=== PATIENT | male | born 1960 | race Caucasian/White ===

== ENCOUNTER → 2017-08-22 | Outpatient (CLI) | payer OTHER ==
[~2017-08-22] MED LIST: FERR-20 PO; FURO40TA4 PO; METO25TA5 PO; PANT40TA2 PO; SPIR50TA2 PO
[2017-08-22 09:09] LABS: Albumin 3.9 g/dL (3.4-5.0); BUN/Creatinine Ratio 15.2; Bilirubin, Total 0.5 mg/dL (0.2-1.0); Calcium 8.7 mg/dL (8.5-10.1); Potassium 3.9 mmol/L (3.5-5.1); Total Protein 7.6 g/dL (6.4-8.2)
== END | disposition home or self-care (01) ==
LOC: LAB 07:26
PROVIDERS: ATTEND Internal Medicine
DX: R73.01 Impaired fasting glucose (principal); R53.83 Other fatigue; I10 Essential (primary) hypertension
CPT/HCPCS: 36415; 80053; 83036; 84443

== ENCOUNTER → 2018-09-16 | Outpatient (CLI) | payer OTHER ==
[2018-09-16 16:30] LABS: Basophils # (auto) 0 uL; Basophils % (auto) 0.8 % (0.0-2.0); Eosinophils # (auto) 0.1 uL; Eosinophils % (auto) 0.9 % (0.0-7.0); Hematocrit 46.9 % (41.0-53.0); Hemoglobin 15.9 g/dL (13.5-17.5); Lymphocytes # (auto) 0.8 uL; Lymphocytes % (auto) 12.9 % (10.0-50.0); Mean Corpuscular Hemoglobin 31.1 pg (28.0-32.0); Mean Corpuscular Volume 91.4 fL (80.0-100.0); Monocytes # (auto) 0.6 uL; Monocytes % (auto) 9.9 % (0.0-12.0); Neutrophils # (auto) 4.7 uL; Neutrophils % (auto) 75.5 % (37.0-80.0); Platelet Count (auto) 135 10^3/uL (140-450); Red Blood Cells 5.13 10^6/uL (4.5-5.90); White Blood Cell 6.3 10^3/uL (4.4-10.8)
[2018-09-16 16:42] LABS: Albumin 4.1 g/dL (3.4-5.0); BUN/Creatinine Ratio 15.7; Calcium 9.3 mg/dL (8.5-10.1); Potassium 3.7 mmol/L (3.5-5.1)
[2018-09-16 16:46] LABS: Bilirubin, Total 0.7 mg/dL (0.2-1.0); Total Protein 7.4 g/dL (6.4-8.2)
== END | disposition home or self-care (01) ==
LOC: LAB 16:01
PROVIDERS: ATTEND Internal Medicine
DX: Z12.11 Encounter for screening for malignant neoplasm of colon (principal); Z12.5 Encounter for screening for malignant neoplasm of prostate; I10 Essential (primary) hypertension
CPT/HCPCS: 36415; 80053; 80061; 82306; 84153; 84443; 85025

== ENCOUNTER 2020-06-29 17:41 | Inpatient (IN) | payer BC, OTHER ==
[~2020-06-29] VITALS: Ht 185.4 cm; Wt 131.5 kg
[2020-06-29 18:53] LABS: Basophils # (auto) 0.1 10 ^3/uL (0-0.2); Basophils % (auto) 0.7 % (0.0-2.0); Eosinophils # (auto) 0.1 10 ^3/uL (0-0.8); Hematocrit 51.7 % (41.0-53.0); Hemoglobin 17.8 g/dL (13.5-17.5); Lymphocytes # (auto) 0.9 10 ^3/uL (0.4-5.4); Lymphocytes % (auto) 11.9 % (10.0-50.0); Mean Corpuscular Hemoglobin 31.3 pg (28.0-32.0); Mean Corpuscular Hgb Conc. 34.4 g/dL (32.0-36.0); Mean Corpuscular Volume 90.9 fL (80.0-100.0); Monocytes # (auto) 0.8 10 ^3/uL (0-1.3); Monocytes % (auto) 10.2 % (0.0-12.0); Neutrophils # (auto) 5.8 10 ^3/uL (1.6-8.6); Neutrophils % (auto) 76.2 % (37.0-80.0); Nucleated Red Blood Cells % 0.3 %; Platelet Count (auto) 209 10^3/uL (140-450); Red Blood Cells 5.68 10^6/uL (4.5-5.90); Red Cell Distribution Width 14.2 % (11.8-14.3); White Blood Cell 7.6 10^3/uL (4.4-10.8)
[2020-06-29 19:09] LABS: Albumin 3.7 g/dL (3.4-5.0); Anion Gap 10 (5-15); Blood Urea Nitrogen 11 mg/dL (7-18); Calcium 8.8 mg/dL (8.5-10.1); Carbon Dioxide 21 mmol/L (21-32); Chloride 107 mmol/L (98-107); Glucose 119 mg/dL (74-106); Potassium 3.9 mmol/L (3.5-5.1); Sodium 138 mmol/L (136-145)
[2020-06-29 19:14] LABS: Alanine Aminotransferase 26 U/L (16-61); Alkaline Phosphatase 74 U/L (45-117); Aspartate Aminotransferase 27 U/L (15-37); BUN/Creatinine Ratio 12.2; GFR African American 111 mL/min; GFR Non-African American 92 mL/min; Total Protein 7.6 g/dL (6.4-8.2)
[2020-06-29] MEDS ORDERED: SODIUM CHLORIDE 0.9% 2,000 ML IV ONE (19:30)
[2020-06-29] MEDS ORDERED: ONDANSETRON HCL 4 MG/2 ML VIAL IV ONE (19:30)
[2020-06-29] MEDS ORDERED: FAMOTIDINE (10MG/ML) 2ML VL IV ONE (19:30)
[2020-06-29] MEDS ORDERED: ASPirin 325 MG TAB PO ONE (21:30)
[2020-06-29] MEDS ORDERED: METOPROLOL TARTRATE 25 MG TAB PO ONE (23:00)
[2020-06-29] MEDS ORDERED: MORPHINE SULF INJ 2 MG/ML SYRINGE 1ML IV PRN (23:00)
[2020-06-29] MEDS ORDERED: ONDANSETRON HCL 4 MG/2 ML VIAL IV PRN (23:00)
[2020-06-29] MEDS ORDERED: NITROGLYCERIN 0.4 MG SL TAB SL PRN (23:00)
[2020-06-29] MEDS ORDERED: TEMAZEPAM 15 MG CAP PO PRN (23:00)
[2020-06-30 01:30] VITALS: BP 125/80
[2020-06-30] MEDS: ACETAMINOPHEN 325 MG TAB PO PRN ×2 (02:30→10:00)
[2020-06-30 05:12] VITALS: BP 133/77
[2020-06-30 06:05] LABS: Basophils # (auto) 0.1 10 ^3/uL (0-0.2); Basophils % (auto) 0.8 % (0.0-2.0); Eosinophils # (auto) 0.1 10 ^3/uL (0-0.8); Eosinophils % (auto) 1.4 % (0.0-7.0); Hematocrit 45.3 % (41.0-53.0); Hemoglobin 15.9 g/dL (13.5-17.5); Lymphocytes # (auto) 0.9 10 ^3/uL (0.4-5.4); Lymphocytes % (auto) 13.3 % (10.0-50.0); Mean Corpuscular Hemoglobin 31.8 pg (28.0-32.0); Mean Corpuscular Hgb Conc. 35.1 g/dL (32.0-36.0); Mean Corpuscular Volume 90.4 fL (80.0-100.0); Monocytes # (auto) 0.7 10 ^3/uL (0-1.3); Monocytes % (auto) 10.5 % (0.0-12.0); Neutrophils # (auto) 4.8 10 ^3/uL (1.6-8.6); Nucleated Red Blood Cells % 0.2 %; Platelet Count (auto) 157 10^3/uL (140-450); Red Blood Cells 5.01 10^6/uL (4.5-5.90); Red Cell Distribution Width 14.3 % (11.8-14.3); White Blood Cell 6.4 10^3/uL (4.4-10.8)
[2020-06-30 06:21] LABS: Albumin 3.5 g/dL (3.4-5.0); Calcium 8.1 mg/dL (8.5-10.1); Potassium 3.7 mmol/L (3.5-5.1)
[2020-06-30 06:23] LABS: BUN/Creatinine Ratio 16.7
[2020-06-30 06:37] LABS: Bilirubin, Total 0.9 mg/dL (0.2-1.0); Total Protein 6.7 g/dL (6.4-8.2)
[2020-06-30 08:37] VITALS: BP 108/60
[2020-06-30] MEDS: METOPROLOL TARTRATE 25 MG TAB PO SCH ×2 (09:36→21:45)
[2020-06-30] MEDS: FAMOTIDINE 20 MG TAB PO SCH ×2 (09:37→21:45)
[2020-06-30] MEDS ORDERED: ENOXAPARIN SOD 40 MG/0.4 ML SYRINGE SC SCH (10:00)
[2020-06-30 13:00] VITALS: BP 128/89
[2020-06-30 16:34] VITALS: BP 132/70
[2020-06-30 20:00] VITALS: BP 133/93
[2020-06-30] MEDS ORDERED: RIVAROXABAN 20 MG TAB PO SCH (22:00)
[2020-07-01 05:00] VITALS: BP 114/60
[2020-07-01 09:00] VITALS: BP 144/96
[2020-07-01] MEDS ORDERED: DRONEDARONE HCL 400 MG PO SCH (10:00)
[2020-07-01] MEDS: METOPROLOL TARTRATE 25 MG TAB PO SCH (10:15)
[2020-07-01] MEDS: FAMOTIDINE 20 MG TAB PO SCH (10:15)
[2020-07-01 13:00] VITALS: BP 110/66
[2020-07-01 14:38] VITALS: BP 110/66
== END 2020-07-01 16:10 | disposition home or self-care (01) | DRG 310 ==
LOC: ER 17:41 → TELE 22:56 → TELE-CENTR 23:33
PROVIDERS: ADMIT Nurse Practitioner; ATTEND Internal Medicine
DX: I48.20 Chronic atrial fibrillation, unspecified (principal); E66.01 Morbid (severe) obesity due to excess calories; I11.0 Hypertensive heart disease with heart failure; I50.9 Heart failure, unspecified; Z86.73 Personal history of transient ischemic attack (TIA), and cerebral infarction without residual deficits; Z68.38 Body mass index [BMI] 38.0-38.9, adult; Z90.49 Acquired absence of other specified parts of digestive tract; K46.9 Unspecified abdominal hernia without obstruction or gangrene; Z20.822 Contact with and (suspected) exposure to COVID-19
CPT/HCPCS: 36415; 71045; 80053; 83605; 83735; 83880; 84443; 84484; 85025; 87045; 87426; 87427; 87493; 93005; 93306; 96361; 96374; 96375; G0378; J2405; J3490

== ENCOUNTER → 2023-08-09 | Outpatient (CLI) | payer OTHER ==
[~2023-08-09] MED LIST changes: -FERR-20 PO; +FERR325T24 PO
[2023-08-09 11:14] LABS: Urine Bacteria None Seen /hpf (None Seen)
[2023-08-09 11:35] LABS: Eosinophils # (auto) 0.1 10 ^3/uL (0-0.8); Lymphocytes # (auto) 0.8 10 ^3/uL (0.4-5.4); Monocytes # (auto) 0.6 10 ^3/uL (0-1.3); Nucleated Red Blood Cells % 0.2 %; Red Cell Distribution Width 16.9 % (11.8-14.3)
[2023-08-09 11:37] LABS: Basophils # (auto) 0 10 ^3/uL (0-0.2); Basophils % (auto) 0.3 % (0.0-2.0); Eosinophils % (auto) 2.4 % (0.0-7.0); Hematocrit 35.5 % (41.0-53.0); Lymphocytes % (auto) 15.3 % (10.0-50.0); Mean Corpuscular Hemoglobin 22.6 pg (28.0-32.0); Mean Corpuscular Volume 72.7 fL (80.0-100.0); Monocytes % (auto) 11.1 % (0.0-12.0); Neutrophils # (auto) 3.7 10 ^3/uL (1.6-8.6); Neutrophils % (auto) 70.9 % (37.0-80.0); Red Blood Cells 4.88 10^6/uL (4.5-5.90); White Blood Cell 5.3 10^3/uL (4.4-10.8)
[2023-08-09 11:53] LABS: Urine Blood Negative /uL (Negative); Urine Clarity Clear (Clear); Urine Color Light-Yellow (Yellow); Urine Protein, UAD Negative (Negative); Urine Specific Gravity 1.039 (1.001-1.035); Urine Urobilinogen Normal (Negative); Urine WBC <1 /hpf (0 - 3)
[2023-08-09 12:16] LABS: Prostate Specific Antigen 2.54 ng/mL (0.0-4.0)
[2023-08-09 12:19] LABS: Alanine Aminotransferase 20 U/L (7-40); Albumin 4.3 g/dL (3.2-4.8); Alkaline Phosphatase 74 U/L (46-116); Anion Gap 5 (5-15); Aspartate Aminotransferase 18 U/L (13-40); Blood Urea Nitrogen 9 mg/dL (9-23); Calcium 8.9 mg/dL (8.5-10.1); Carbon Dioxide 26 mmol/L (20-30); Chloride 104 mmol/L (98-107); Cholesterol 187 mg/dL (< 200); Glucose 295 mg/dL (74-106); HDL Cholesterol 54 mg/dL (40-59); LDL Cholesterol 114 mg/dL (< 100); Sodium 135 mmol/L (136-145); Triglycerides 105 mg/dL (< 150)
[2023-08-09 12:20] LABS: Bilirubin, Total 0.7 mg/dL (0.2-1.0); Free T4 (Free Thyroxine) 0.88 ng/dL (0.89-1.76); Total Protein 6.7 g/dL (5.7-8.2)
== END | disposition home or self-care (01) ==
LOC: LAB 11:02
PROVIDERS: ATTEND Internal Medicine
DX: Z12.5 Encounter for screening for malignant neoplasm of prostate (principal); Z00.00 Encounter for general adult medical examination without abnormal findings; I10 Essential (primary) hypertension; D50.9 Iron deficiency anemia, unspecified; R33.9 Retention of urine, unspecified; E78.2 Mixed hyperlipidemia; Z79.899 Other long term (current) drug therapy
CPT/HCPCS: 36415; 80053; 80061; 81001; 83036; 84153; 84439; 84443; 85025

== ENCOUNTER 2023-09-02 17:16 | Inpatient (IN) | payer OTHER ==
[~2023-09-02] VITALS: Ht 185.4 cm; Wt 114.9 kg
[2023-09-02 18:18] LABS: Basophils # (auto) 0.1 10 ^3/uL (0-0.2); Eosinophils # (auto) 0.1 10 ^3/uL (0-0.8); Hemoglobin 12.7 g/dL (13.5-17.5); Monocytes # (auto) 0.6 10 ^3/uL (0-1.3); Nucleated Red Blood Cells % 0.1 %; Red Cell Distribution Width 16.8 % (11.8-14.3)
[2023-09-02 18:21] LABS: Eosinophils % (auto) 1.3 % (0.0-7.0); Hematocrit 39.7 % (41.0-53.0); Lymphocytes % (auto) 16.3 % (10.0-50.0); Mean Corpuscular Hemoglobin 22.6 pg (28.0-32.0); Mean Corpuscular Volume 70.6 fL (80.0-100.0); Monocytes % (auto) 10.4 % (0.0-12.0); Neutrophils # (auto) 4.3 10 ^3/uL (1.6-8.6); Red Blood Cells 5.63 10^6/uL (4.5-5.90); White Blood Cell 6.1 10^3/uL (4.4-10.8)
[2023-09-02 18:29] LABS: INR 0.97 (0.9-1.15); Partial Thromboplastin Time 24.4 SEC (24.5-34.5); Prothrombin Time 10.3 sec (9.3-11.8)
[2023-09-02 18:35] LABS: Alanine Aminotransferase 20 U/L (7-40); Albumin 4.7 g/dL (3.2-4.8); Alkaline Phosphatase 80 U/L (46-116); Anion Gap 8 (5-15); Aspartate Aminotransferase 10 U/L (13-40); BUN/Creatinine Ratio 16.1 (10.0-20.0); Bilirubin, Total 0.5 mg/dL (0.2-1.0); Blood Urea Nitrogen 15 mg/dL (9-23); Calcium 9.8 mg/dL (8.5-10.1); Carbon Dioxide 22 mmol/L (20-30); Chloride 104 mmol/L (98-107); Glucose 336 mg/dL (74-106); Potassium 4.4 mmol/L (3.5-5.1); Sodium 134 mmol/L (136-145); Total Protein 7.1 g/dL (5.7-8.2)
[2023-09-02] MEDS ORDERED: ACETAMINOPHEN 325 MG TAB PO PRN (21:00)
[2023-09-02] MEDS ORDERED: NITROGLYCERIN 0.4 MG SL TAB SL PRN (21:00)
[2023-09-02] MEDS ORDERED: MORPHINE SULFATE INJ 2 MG/ml SYRG IV PRN (21:00)
[2023-09-02] MEDS ORDERED: TEMAZEPAM 15 MG CAP PO PRN (21:00)
[2023-09-02] MEDS ORDERED: ONDANSETRON HCL 4 MG/2 ML VIAL IV PRN (21:00)
[2023-09-02] MEDS ORDERED: DEXTROSE (50%) 50ML SYRG IV PRN (21:00)
[2023-09-02 21:18] LABS: Urine Bacteria None Seen /hpf (None Seen)
[2023-09-02 21:28] LABS: Urine Blood Negative /uL (Negative); Urine Clarity Clear (Clear); Urine Color Yellow (Yellow); Urine Mucus FEW (None Seen); Urine Protein, UAD 1+ (Negative); Urine Specific Gravity 1.049 (1.001-1.035); Urine Urobilinogen Normal (Negative); Urine WBC 5 /hpf (0 - 3)
[2023-09-03] MEDS: HYDROcodone-ACET 7.5/325MG TAB PO PRN (00:43)
[2023-09-03] MEDS ORDERED: DEXTROSE (50%) 50ML SYRG IV PRN ×2 (01:00→13:00)
[2023-09-03 02:19] VITALS: PULSE 82; RESP 16; O2SAT 96
[2023-09-03] MEDS: ACCU-CHEK COMFORT CURVE STRIP VI SCH ×3 (06:13→16:16)
[2023-09-03] MEDS: InsuLIN REG 1unit/0.01ml Soln (100units/ml) SC SCH ×3 (06:20→16:28)
[2023-09-03 06:39] LABS: Basophils # (auto) 0.1 10 ^3/uL (0-0.2); Eosinophils # (auto) 0.1 10 ^3/uL (0-0.8); Hemoglobin 11.5 g/dL (13.5-17.5); Lymphocytes # (auto) 0.9 10 ^3/uL (0.4-5.4); Monocytes # (auto) 0.7 10 ^3/uL (0-1.3); Monocytes % (auto) 12.9 % (0.0-12.0)
[2023-09-03 06:42] LABS: Basophils % (auto) 1.1 % (0.0-2.0); Eosinophils % (auto) 1.5 % (0.0-7.0); Hematocrit 35.8 % (41.0-53.0); Lymphocytes % (auto) 18.3 % (10.0-50.0); Mean Corpuscular Hemoglobin 22.9 pg (28.0-32.0); Mean Corpuscular Hgb Conc. 32.2 g/dL (32.0-36.0); Mean Corpuscular Volume 71.3 fL (80.0-100.0); Neutrophils # (auto) 3.4 10 ^3/uL (1.6-8.6); Neutrophils % (auto) 66.2 % (37.0-80.0); Red Blood Cells 5.03 10^6/uL (4.5-5.90); Red Cell Distribution Width 16.3 % (11.8-14.3); White Blood Cell 5.1 10^3/uL (4.4-10.8)
[2023-09-03 06:47] LABS: Anion Gap 9 (5-15); Carbon Dioxide 25 mmol/L (20-30); Chloride 105 mmol/L (98-107); Potassium 3.5 mmol/L (3.5-5.1); Sodium 139 mmol/L (136-145)
[2023-09-03 06:48] LABS: Calcium 9.3 mg/dL (8.7-10.4)
[2023-09-03 06:54] LABS: Blood Urea Nitrogen 13 mg/dL (9-23)
[2023-09-03 07:10] LABS: Glucose 215 mg/dL (74-106)
[2023-09-03 08:00] VITALS: PULSE 75; RESP 14; O2SAT 97
[2023-09-03 08:48] LABS: Magnesium 1.9 mg/dL (1.6-2.6)
[2023-09-03] MEDS ORDERED: ENOXAPARIN SOD 40 MG/0.4 ML SYRINGE SC SCH (10:00)
[2023-09-03] MEDS: FUROSEMIDE 40 MG TAB PO SCH (10:37)
[2023-09-03] MEDS: SPIRONOLACTONE 25 MG TAB PO SCH (10:38)
[2023-09-03] MEDS: METOPROLOL SUCCINATE XL 50 MG TAB PO SCH (10:39)
[2023-09-03] MEDS: ENOXAPARIN SOD 120 MG/0.8 ML SYRINGE SC SCH (10:40)
[2023-09-03 19:40] VITALS: PULSE 89; RESP 16; O2SAT 97
[2023-09-04] VITALS (8 sets, daily range): BP systolic 115–134; BP diastolic 69–78; PULSE 68–89; RESP 14–22; TEMP 97.8–98.2; O2SAT 95–99
[2023-09-04] MEDS ORDERED: TRAM50TA2 PO (00:49)
[2023-09-04] MEDS ORDERED: SPIR25TA PO (11:31)
[2023-09-04] MEDS ORDERED: METO25TA93 PO (11:31)
[2023-09-04] MEDS ORDERED: FURO1TAB31 PO (11:31)
[2023-09-04] MEDS: InsuLIN REG 1unit/0.01ml Soln (100units/ml) SC SCH ×2 (17:00→18:30)
[2023-09-04] MEDS: ACCU-CHEK COMFORT CURVE STRIP VI SCH (18:14)
[2023-09-05 01:00] VITALS: BP 128/81; PULSE 76; RESP 18; TEMP 98.5; O2SAT 98
[2023-09-05 05:00] VITALS: BP 135/87; PULSE 73; RESP 20; TEMP 97.9; O2SAT 99
[2023-09-05 09:00] VITALS: BP 110/80; PULSE 78; RESP 16; TEMP 97.8; O2SAT 99
[2023-09-05 12:48] VITALS: BP 118/75; PULSE 74; RESP 18; TEMP 98.1; O2SAT 97
== END 2023-09-05 17:00 | disposition home or self-care (01) | DRG 305 ==
LOC: ER 17:16 → TELE 20:59 → TELE-WESTW 09-03 22:03 → WEST WING 09-04 17:14
PROVIDERS: ADMIT Nurse Practitioner; ATTEND Internal Medicine
DX: I16.0 Hypertensive urgency (principal); I48.0 Paroxysmal atrial fibrillation; E11.65 Type 2 diabetes mellitus with hyperglycemia; E66.9 Obesity, unspecified; I10 Essential (primary) hypertension; E78.00 Pure hypercholesterolemia, unspecified; Z68.33 Body mass index [BMI] 33.0-33.9, adult; Z86.718 Personal history of other venous thrombosis and embolism; Z79.84 Long term (current) use of oral hypoglycemic drugs; Z79.4 Long term (current) use of insulin; Z90.49 Acquired absence of other specified parts of digestive tract
CPT/HCPCS: 36415; 71045; 80048; 80053; 80061; 81001; 82962; 83735; 83880; 84443; 84484; 85025; 85379; 85610; 85730; 93005; 93306; 96372; G0378; J1815

== ENCOUNTER → 2023-09-09 | Outpatient (CLI) | payer OTHER ==
[~2023-09-09] MED LIST changes: +FURO1TAB31 PO; -FURO40TA4 PO; +METO25TA93 PO; +SPIR25TA PO; -SPIR50TA2 PO; +TRAM50TA2 PO
[2023-09-09 12:07] LABS: Basophils # (auto) 0.1 10 ^3/uL (0-0.2); Basophils % (auto) 0.8 % (0.0-2.0); Hemoglobin 12.3 g/dL (13.5-17.5); Lymphocytes # (auto) 0.6 10 ^3/uL (0.4-5.4); Monocytes # (auto) 0.6 10 ^3/uL (0-1.3)
[2023-09-09 12:09] LABS: Eosinophils # (auto) 0 10 ^3/uL (0-0.8); Eosinophils % (auto) 0.6 % (0.0-7.0); Hematocrit 39.5 % (41.0-53.0); Lymphocytes % (auto) 7.9 % (10.0-50.0); Mean Corpuscular Hemoglobin 22.2 pg (28.0-32.0); Mean Corpuscular Hgb Conc. 31.2 g/dL (32.0-36.0); Mean Corpuscular Volume 71.3 fL (80.0-100.0); Monocytes % (auto) 8.6 % (0.0-12.0); Neutrophils % (auto) 82.1 % (37.0-80.0); Red Blood Cells 5.54 10^6/uL (4.5-5.90); Red Cell Distribution Width 16.9 % (11.8-14.3); White Blood Cell 7.3 10^3/uL (4.4-10.8)
[2023-09-09 12:39] LABS: Ferritin 6.3 ng/mL (22-322)
[2023-09-09 12:40] LABS: Free T3 2.94 pg/mL (2.3-4.2)
[2023-09-09 12:43] LABS: Anion Gap 5 (5-15); Calcium 9.4 mg/dL (8.5-10.1); Carbon Dioxide 25 mmol/L (20-30); Chloride 105 mmol/L (98-107); Potassium 3.5 mmol/L (3.5-5.1); Sodium 135 mmol/L (136-145)
[2023-09-09 12:48] LABS: Glucose 269 mg/dL (74-106)
[2023-09-09 12:49] LABS: BUN/Creatinine Ratio 14.9 (10.0-20.0); Blood Urea Nitrogen 13 mg/dL (9-23); LDL Cholesterol 102 mg/dL (< 100); Triglycerides 122 mg/dL (< 150)
[2023-09-09 12:50] LABS: Cholesterol 154 mg/dL (< 200); HDL Cholesterol 38 mg/dL (40-59)
[2023-09-09 13:37] LABS: Free T4 (Free Thyroxine) 1.02 ng/dL (0.89-1.76)
== END | disposition home or self-care (01) ==
LOC: LAB 11:08
PROVIDERS: ATTEND Internal Medicine
DX: I11.0 Hypertensive heart disease with heart failure (principal); I50.32 Chronic diastolic (congestive) heart failure; E78.2 Mixed hyperlipidemia; D50.9 Iron deficiency anemia, unspecified
CPT/HCPCS: 36415; 80048; 80061; 82728; 83036; 83540; 84439; 84443; 84481; 85025

== ENCOUNTER → 2023-09-27 | Outpatient (CLI) | payer OTHER ==
[2023-09-27 10:46] LABS: Alanine Aminotransferase 14 U/L (7-40); Albumin 4.7 g/dL (3.2-4.8); Alkaline Phosphatase 67 U/L (46-116); Anion Gap 9 (5-15); Aspartate Aminotransferase 12 U/L (13-40); BUN/Creatinine Ratio 15.3 (10.0-20.0); Bilirubin, Total 0.9 mg/dL (0.2-1.0); Blood Urea Nitrogen 13 mg/dL (9-23); Calcium 9.8 mg/dL (8.5-10.1); Carbon Dioxide 24 mmol/L (20-30); Chloride 104 mmol/L (98-107); Cholesterol 172 mg/dL (< 200); Glucose 289 mg/dL (74-106); HDL Cholesterol 44 mg/dL (40-59); LDL Cholesterol 112 mg/dL (< 100); Potassium 3.5 mmol/L (3.5-5.1); Sodium 137 mmol/L (136-145); Total Protein 7.1 g/dL (5.7-8.2); Triglycerides 135 mg/dL (< 150)
[2023-09-27 11:29] LABS: Prostate Specific Antigen 2.43 ng/mL (0.0-4.0)
[2023-09-30 14:20] LABS: Hepatitis A Ab IgM Negative
[2023-09-30 14:21] LABS: Hepatitis B Core IgM Negative; Hepatitis C Antibody Negative (Negative)
[2023-10-01 03:45] LABS: Hepatitis B Surface Antigen Negative (Negative)
== END | disposition home or self-care (01) ==
LOC: LAB 09:06
PROVIDERS: ATTEND Internal Medicine
DX: Z11.59 Encounter for screening for other viral diseases (principal); Z12.5 Encounter for screening for malignant neoplasm of prostate; I10 Essential (primary) hypertension; E11.69 Type 2 diabetes mellitus with other specified complication; E78.2 Mixed hyperlipidemia; E55.9 Vitamin D deficiency, unspecified; D50.9 Iron deficiency anemia, unspecified; I48.0 Paroxysmal atrial fibrillation; E66.8 Other obesity
CPT/HCPCS: 36415; 80053; 80061; 80074; 82306; 82607; 84153

== ENCOUNTER → 2023-10-18 | Outpatient (CLI) | payer OTHER ==
[2023-10-18 12:41] LABS: Lymphocytes # (auto) 0.9 10 ^3/uL (0.4-5.4); Monocytes # (auto) 0.5 10 ^3/uL (0-1.3); White Blood Cell 5.6 10^3/uL (4.4-10.8)
[2023-10-18 12:43] LABS: Basophils # (auto) 0.1 10 ^3/uL (0-0.2); Basophils % (auto) 0.9 % (0.0-2.0); Eosinophils # (auto) 0 10 ^3/uL (0-0.8); Eosinophils % (auto) 0.8 % (0.0-7.0); Hematocrit 43.1 % (41.0-53.0); Hemoglobin 14.1 g/dL (13.5-17.5); Lymphocytes % (auto) 15.5 % (10.0-50.0); Mean Corpuscular Hemoglobin 26.2 pg (28.0-32.0); Mean Corpuscular Hgb Conc. 32.6 g/dL (32.0-36.0); Mean Corpuscular Volume 80.3 fL (80.0-100.0); Neutrophils # (auto) 4.2 10 ^3/uL (1.6-8.6); Neutrophils % (auto) 73.8 % (37.0-80.0); Red Blood Cells 5.37 10^6/uL (4.5-5.90)
[2023-10-18 12:45] LABS: Red Cell Distribution Width 25.3 % (11.8-14.3)
[2023-10-18 13:00] LABS: Platelet Estimate Adequate
[2023-10-18 13:01] LABS: Anisocytosis Moderate
[2023-10-18 13:04] LABS: Tear Drop Cells FEW
[2023-10-18 13:37] LABS: % Iron Saturation 34.5 % (20-55)
== END | disposition home or self-care (01) ==
LOC: LAB 12:19
PROVIDERS: ATTEND Internal Medicine
DX: D50.9 Iron deficiency anemia, unspecified (principal)
CPT/HCPCS: 36415; 82728; 83540; 83550; 85025

== ENCOUNTER → 2023-11-14 | Outpatient (CLI) | payer OTHER ==
[~2023-11-14] VITALS: Ht 180.3 cm; Wt 114.8 kg
[2023-11-14] MEDS: ADENOSINE 96 MG in GIVE UN-DILUTED 0 ML IV ONE (09:51)
== END | disposition home or self-care (01) ==
LOC: XYW 07:34
PROVIDERS: ATTEND Student in an Organized Health Care Education/Training Program
DX: I49.3 Ventricular premature depolarization (principal); R07.9 Chest pain, unspecified; I10 Essential (primary) hypertension; E11.9 Type 2 diabetes mellitus without complications; I48.91 Unspecified atrial fibrillation; E78.5 Hyperlipidemia, unspecified
CPT/HCPCS: 78452; 93017; A9500; J0153

== ENCOUNTER → 2024-05-21 | Outpatient (CLI) | payer MEDICAID, OTHER ==
[2024-05-21 12:46] LABS: Basophils # (auto) 0.1 10 ^3/uL (0-0.2); Eosinophils # (auto) 0.1 10 ^3/uL (0-0.8); Eosinophils % (auto) 0.8 % (0.0-7.0); Hematocrit 31.9 % (41.0-53.0); Hemoglobin 10.2 g/dL (13.5-17.5); Lymphocytes # (auto) 0.9 10 ^3/uL (0.4-5.4); Lymphocytes % (auto) 12.9 % (10.0-50.0); Mean Corpuscular Hemoglobin 22.6 pg (28.0-32.0); Mean Corpuscular Hgb Conc. 32.1 g/dL (32.0-36.0); Mean Corpuscular Volume 70.5 fL (80.0-100.0); Monocytes # (auto) 0.6 10 ^3/uL (0-1.3); Monocytes % (auto) 8.8 % (0.0-12.0); Neutrophils # (auto) 5.4 10 ^3/uL (1.6-8.6); Neutrophils % (auto) 76.5 % (37.0-80.0); Platelet Count (auto) 263 10^3/uL (140-450); Red Blood Cells 4.52 10^6/uL (4.5-5.90); Red Cell Distribution Width 16.4 % (11.8-14.3); White Blood Cell 7.1 10^3/uL (4.4-10.8)
[2024-05-21 13:03] LABS: Alanine Aminotransferase 13 U/L (7-40); Albumin 4.5 g/dL (3.2-4.8); Alkaline Phosphatase 74 U/L (46-116); Anion Gap 8 (5-15); BUN/Creatinine Ratio 13.2 (10.0-20.0); Blood Urea Nitrogen 10 mg/dL (9-23); Calcium 9.2 mg/dL (8.7-10.4); Carbon Dioxide 26 mmol/L (20-31); Chloride 104 mmol/L (98-107); Cholesterol 172 mg/dL (< 200); HDL Cholesterol 43 mg/dL (40-59); Potassium 3.6 mmol/L (3.5-5.1); Sodium 138 mmol/L (136-145); Triglycerides 128 mg/dL (< 150)
[2024-05-21 13:04] LABS: Aspartate Aminotransferase 10 U/L (13-40); Bilirubin, Total 0.6 mg/dL (0.2-1.0); Glucose 167 mg/dL (74-106); LDL Cholesterol 107 mg/dL (< 100); Total Protein 6.8 g/dL (5.7-8.2)
== END | disposition home or self-care (01) ==
LOC: LAB 12:08
PROVIDERS: ATTEND Student in an Organized Health Care Education/Training Program
DX: I11.0 Hypertensive heart disease with heart failure (principal); I50.30 Unspecified diastolic (congestive) heart failure; E11.9 Type 2 diabetes mellitus without complications; R06.02 Shortness of breath
CPT/HCPCS: 36415; 80053; 80061; 83036; 83880; 84443; 85025

== ENCOUNTER 2024-07-26 16:18 | Inpatient (IN) | payer MEDICAID ==
[~2024-07-26] VITALS: Ht 185.4 cm; Wt 125.7 kg
--- NOTE | 2024-07-26 17:16 | ED.PDOC ---
Burn HPI HPI Comments 63 y.o male with PMHx of history of right arm DVT, hypertension, dyslipidemia, type 2 diabetes mellitus, pancreatic stones, chronic back pain, presents to the ED for an evaluation of a burn that developed 2 days ago. Patient reports possibly oil or grease from [place]rera fell onto his abdomen while cooking, states he has no sensation to his abdomen region where he had an abdominal wall skin graft in 2013. Patient reports blister formed yesterday but since switching bandages, blister burst and now has clear drainage. There is some redness around the previous blister area, but patient's spouse states this has been stable since she has been aware of the burn. Patient denies any fever or chills. Patient states he has a history of previous staph skin infection, none recently and is not on any antibiotics at this time. Patient states he received tetanus vaccine within the last 3 yrs. Chief Complaint: Tran Time Seen by MD: 17:02 Primary Care Provider: AMY Hutton notes: Nurses Notes, Medications, Allergies Allergies: Coded Allergies: NO KNOWN ALLERGIES (Unverified , 11/14/23) Home Meds Active Scripts Mupirocin (Pseudomonas Fluores (Mupirocin) 2 % Oin, 2 % TOP TID, #30 GRAMS Apply to burn area tid until healed. Prov:MELISSA CHRISTOPHER MD 07/26/24 Doxycycline (Monohydrate) (Doxycycline) 100 Mg Tab, 100 MG PO BID for 7 Days, #14 TAB Prov:MELISSA CHRISTOPHER MD 07/26/24 Furosemide (Lasix) 40 Mg Tab, 40 MG PO DAILY, #90 TAB Prov:GEENA MAO MD 09/04/23 Spironolactone (Aldactone) 25 Mg Tab, 50 MG PO DAILY, #90 TAB Prov:GEENA MAO MD 09/04/23 Metoprolol Succinate (Metoprolol Succinate Er) 25 Mg Tab, 1 TAB PO DAILY, #90 TAB 1 Refill Prov:GEENA MAO MD 09/04/23 Reported Medications Tramadol Hcl (Tramadol Hcl) 50 Mg Tab, 50 MG PO, TAB 09/04/23 Metoprolol Tartrate (Metoprolol Tartrate) 25 Mg Tab, 12.5 MG PO BID, TAB 01/30/15 Ferrous Sulfate (Ferrous Sulfate) 325 Mg Tab, 325 MG PO DAILY for 30 Days, MG 01/30/15 Pantoprazole Sodium Sesquihydr (Protonix) 40 Mg Tab, 40 MG PO DAILY, #30 TAB 01/30/15 Information Source: Patient, Relative (daughter ) Mode of Arrival: Ambulatory Severity: Moderate Timing: Days (2) Duration: Since onset Type of Burn: Other (Unknown ) Location: Abdomen Burn Quality: Painless, Red, Blisters Associated Sign and Symptoms: None Past Medical History PAST MEDICAL HISTORY: DM, High Lipids, HTN Past Medical History (Other): chronic back pain and DVT Surgical History: Appendectomy, Cholecystectomy, Hernia Repair Family History Family History: Reviewed,noncontributory to illness Social History Smoker: Non-Smoker, Quit Greater Than 1 Year, Cigarettes Alcohol: Denies ETOH Use Drugs: Denies Drug Use Lives In: Home Constitutional: denies: chills, diaphoresis, fatigue, fever, malaise, sweats, weakness, others EENTM: denies: blurred vision, double vision, ear bleeding, ear discharge, ear drainage, ear pain, ear ringing, eye pain, eye redness, hearing loss, mouth pain, mouth swelling, nasal discharge, nose bleeding, nose congestion, nose pa in, photophobia, tearing, throat pain, throat swelling, voice changes, others Respiratory: denies: cough, hemoptysis, orthopnea, SOB at rest, shortness of breath, SOB with excertion, stridor, wheezing, others Cardiovascular: denies: chest pain, dizzy spells, diaphoresis, Dyspnea on exertion, edema, irregular heart beat, left arm pain, lightheadedness, palpitations, PND, syncope, others Gastrointestinal: denies: abdomen distended, abdominal pain, blood streaked bowels, constipated, diarrhea, dysphagia, difficulty swallowing, hematemesis, melena, nausea, poor appetite, poor fluid intake, rectal bleeding, rectal pain, vomiting, others Genitourinary: denies: burning, dysuria, flank pain, frequency, hematuria, incontinence, penile discharge, penile sore, pain, testicle pain, testicle swelling, urgency, others Neurological: denies: dizziness, fainting, headache, left sided numbness, left sided weakness, numbness, paresthesia, pre-existing deficit, right sided numbness, right sided weakness, seizure, speech problems, tingling, tremors, weakness, others Musculoskeletal: denies: back pain, gout, joint pain, joint swelling, muscle pain, muscle stiffness, neck pain, others Integumetry: reports: wounds (abdomen ); denies: bruises, change in color, change in hair/nails, dryness, laceration, lesions, lumps, rash, others Allergic/Immunocompromised: denies: Difficulty Healing, Frequent Infections, Hives, Itching, others Hematologic/Lymphatic: denies: anemia, blood clots, easy bleeding, easy bruising, swollen glands, others Endocrine: denies: excessive hunger, excessive sweating, excessive thirst, excessive urination, flushing, intolerance to cold, intolerance to heat, unexplained weight gain, unexplained weight loss, others Psychiatric: denies: anxiety, bipolar disorder, depression, hopeless, panic disorder, schizophrenia, sleepless, suicidal, others All Other Systems: Reviewed and Negative Physical Exam General Appearance: No Apparent Distress HEENT: Other (Pupils and face symmetric. Moist mucous membranes.) Neck: Full Range of Motion, Normal Inspection Respiratory: No Accessory Muscle Use, No Respiratory Distress Cardiovascular: No Edema, No JVD Breast Exam: Deferred Gastrointestinal: Non Tender, Soft Genitalia: Deferred Pelvic: Deferred Rectal: Deferred Extremities: Normal inspection, Normal range of motion, No pedal edema Neurologic: Alert (Oriented x4, appropriately conversant), Normal Affect, Normal Mood, Other (Ambulatory.) Cerebellar Function: NOT DONE Reflexes: NOT DONE Skin: Dry, Warm, Other (Right lower abdominal wall superficial partial thickness burn approximately 2.5 x 5 cm with minimal serous d/c. No fluctuance. Brisk cap refill. Approx 1.5 cm margin of surrounding erythema. No edema.) Lymphatic: NOT DONE Was a procedure done? Was a procedure done?: No Differentail Diagnosis (BRN) Differential Diagnosis: Acidosis, Burn-Partial Thickness X-Ray, Labs, Meds, VS Vital Signs Date Time Temp Pulse Resp B/P (MAP) Pulse Ox O2 Delivery O2 Flow Rate FiO2 07/26/24 20:26 97.7 69 16 117/76 (90) 97 97.7 07/26/24 18:12 97.9 65 17 120/62 (81) 98 97.9 07/26/24 18:12 65 17 98 Room Air* 0 21 07/26/24 16:35 98.5 71 18 127/52 (77) 98 98.5 Lab Test 07/26/24 19:31 07/26/24 18:46 Range/Units POC Glucose 103 70-106 mg/dl White Blood Count 8.3 4.4-10.8 10^3/uL Red Blood Count 5.19 4.5-5.90 10^6/uL Hemoglobin 13.7 13.5-17.5 g/dL Hematocrit 42.1 41.0-53.0 % Mean Corpuscular Volume 81.1 80.0-100.0 fL Mean Corpuscular Hemoglobin 26.5 L 28.0-32.0 pg Mean Corpuscular Hemoglobin Concent 32.6 32.0-36.0 g/dL Red Cell Distribution Width 24.2 H 11.8-14.3 % Platelet Count 189 140-450 10^3/uL Mean Platelet Volume 8.7 6.9-10.8 fL Neutrophils (%) (Auto) 80.6 H 37.0-80.0 % Lymphocytes (%) (Auto) 9.0 L 10.0-50.0 % Monocytes (%) (Auto) 9.0 0.0-12.0 % Eosinophils (%) (Auto) 0.9 0.0-7.0 % Basophils (%) (Auto) 0.5 0.0-2.0 % Neutrophils # (Auto) 6.7 1.6-8.6 10 ^3/uL Lymphocytes # (Auto) 0.7 0.4-5.4 10 ^3/uL Monocytes # (Auto) 0.8 0-1.3 10 ^3/uL Eosinophils # (Auto) 0.1 0-0.8 10 ^3/uL Basophils # (Auto) 0 0-0.2 10 ^3/uL Nucleated Red Blood Cells 0.0 % Sodium Level 140 136-145 mmol/L Potassium Level 3.7 3.5-5.1 mmol/L Chloride Level 104 98-107 mmol/L Carbon Dioxide Level 27 20-31 mmol/L Anion Gap 9 5-15 Blood Urea Nitrogen 14 9-23 mg/dL Creatinine 0.80 0.700-1.30 mg/dL Glomerular Filtration Rate Calc 99 >90 mL/min BUN/Creatinine Ratio 17.5 10.0-20.0 Serum Glucose 112 H 74-106 mg/dL Calcium Level 9.6 8.7-10.4 mg/dL Current Medications Medications (Trade) Dose Ordered Sig/Cristian Route Start Time Stop Time Status Last Admin Mupirocin (Bactroban 2% Ointment) 1 applic ONCE ONCE TOP 07/26/24 17:15 07/26/24 17:16 DC 07/26/24 18:28 Vancomycin HCl 200 ml @ 200 mls/hr ONCE ONCE IV 07/26/24 18:30 07/26/24 19:29 DC 07/26/24 18:48 X-Ray, Labs, Meds, VS Comment 63-year-old male with a history of DVT, hypertension, dyslipidemia, type 2 diabetes mellitus, pancreatic stones, chronic back pain presenting with a right lower abdominal wall burn that occurred yesterday. Patient states there was an initial blister, which has sloughed off revealing white tissue underneath. Vitals unremarkable Exam remarkable for right lower abdominal wall superficial partial thickness burn approximately 2.5 x 5 cm with minimal serous d/c. No fluctuance. Brisk cap refill. Approx 1.5 cm margin of surrounding erythema. No edema. Patient treated with the following in the ED: The burn area was cleansed with normal saline/Betadine solution. Mupirocin ointment and a nonadherent dressing were applied. Patient denied any pain. Vitals were unremarkable. He appears stable for discharge with close outpatient follow-up with his primary physician in 2 days for a wound check. I will prescribe oral and topical antibiotics to prevent infection, as the patient is diabetic has a history of staph skin infections. Rx doxycycline, mupirocin 1820: Plan was to discharge the patient on oral antibiotics, however prior to discharge, patient's asked me to re-evaluate, as she felt that the margin of erythema surrounding the burn site was enlarging. On re-evaluation, the margin of erythema had expanded from its initial approximate 1.5 cm to around 5 cm, and there was increased fluid drainage from the burn area. Plan will now be to admit the patient for IV antibiotics. Blood and wound cultures, IV cefepime and vancomycin were ordered. Time of 1ST Reevaluation: 17:11 Reevaluation 1ST: Unchanged Patient Education/Counseling: Diagnosis, Treatment, Prognosis Family Education/Counseling: Diagnosis, Treatment, Prognosis Departure 1 Departure Time of Disposition: 17:37 Impression: Primary Impression: Second degree burn of abdominal wall Qualified Codes: T21.22XA - Burn of second degree of abdominal wall, initial encounter Additional Impression: Wound infection Disposition: ADMITTED INPATIENT Admit to: Med Surg Condition: Guarded e-Prescriptions Mupirocin (Pseudomonas Fluores (Mupirocin) 2 % Oin 2 % TOP TID, #30 GRAMS Apply to burn area tid until healed. Prov: MELISSA CHRISTOPHER MD 07/26/24 Doxycycline (Monohydrate) (Doxycycline) 100 Mg Tab 100 MG PO BID for 7 Days, #14 TAB Prov: MELISSA CHRISTOPHER MD 07/26/24 Critical Care Note Critical Care Time?: No Stability Stability form required: No Heart Score Heart Score: Heart Score Response (Comments) Value History N/A 0 EKG N/A 0 Age N/A 0 Risk Factors N/A 0 Troponin N/A 0 Total 0 I personally scribed for MELISSA CHRISTOPHER MD ([facility] on 07/26/24 at 17:16. Electronically submitted by Bryanna Maciel ([facility]). MELISSA CHRISTOPHER MD July 26, 2024 17:16
[2024-07-26] MEDS ORDERED: MUPI2OIN2 TOP (17:18)
[2024-07-26] MEDS ORDERED: DOXY-346 PO (17:18)
[2024-07-26 18:12] VITALS: PULSE 65; RESP 17; O2SAT 98
[2024-07-26] MEDS: MUPIROCIN 2% OINT 15gm or 22gm TOP ONE (18:28)
[2024-07-26] MEDS: VANCOMYCIN 1GM/200ML PM 200 ML IV ONE (18:48)
[2024-07-26 18:56] LABS: Basophils # (auto) 0 10 ^3/uL (0-0.2); Eosinophils # (auto) 0.1 10 ^3/uL (0-0.8); Hemoglobin 13.7 g/dL (13.5-17.5); Lymphocytes # (auto) 0.7 10 ^3/uL (0.4-5.4); Mean Corpuscular Hgb Conc. 32.6 g/dL (32.0-36.0); Mean Corpuscular Volume 81.1 fL (80.0-100.0)
[2024-07-26 18:58] LABS: Basophils % (auto) 0.5 % (0.0-2.0); Eosinophils % (auto) 0.9 % (0.0-7.0); Hematocrit 42.1 % (41.0-53.0); Mean Corpuscular Hemoglobin 26.5 pg (28.0-32.0); Monocytes # (auto) 0.8 10 ^3/uL (0-1.3); Neutrophils # (auto) 6.7 10 ^3/uL (1.6-8.6); Neutrophils % (auto) 80.6 % (37.0-80.0); Platelet Count (auto) 189 10^3/uL (140-450); Red Blood Cells 5.19 10^6/uL (4.5-5.90); Red Cell Distribution Width 24.2 % (11.8-14.3); White Blood Cell 8.3 10^3/uL (4.4-10.8)
[2024-07-26 19:05] LABS: Chloride 104 mmol/L (98-107); Potassium 3.7 mmol/L (3.5-5.1); Sodium 140 mmol/L (136-145)
[2024-07-26 19:06] LABS: Anion Gap 9 (5-15); Carbon Dioxide 27 mmol/L (20-31)
[2024-07-26 19:07] LABS: Calcium 9.6 mg/dL (8.7-10.4)
[2024-07-26 19:11] LABS: BUN/Creatinine Ratio 17.5 (10.0-20.0); Blood Urea Nitrogen 14 mg/dL (9-23)
[2024-07-26 19:13] LABS: Glucose 112 mg/dL (74-106)
[2024-07-26] MEDS ORDERED: ONDANSETRON HCL 4 MG/2 ML VIAL IV PRN (21:00)
[2024-07-26] MEDS ORDERED: ACETAMINOPHEN 325 MG TAB PO PRN (21:00)
[2024-07-26] MEDS ORDERED: DEXTROSE (50%) 50ML SYRG IV PRN (21:00)
[2024-07-26] MEDS: MUPIROCIN 2% OINT 15gm or 22gm TOP SCH (21:53)
[2024-07-26] MEDS: CLINDAMYCIN 600MG IV 50 ML IV SCH (21:56)
[2024-07-26] MEDS: InsuLIN REG 1unit/0.01ml Soln (100units/ml) SC SCH (21:57)
[2024-07-26] MEDS: ACCU-CHEK COMFORT CURVE STRIP VI SCH (21:57)
[2024-07-26] MEDS: METOPROLOL TARTRATE 25 MG TAB PO SCH (21:59)
[2024-07-26 22:08] VITALS: BP 124/73; PULSE 69; RESP 18; TEMP 98.1; O2SAT 97
[2024-07-26] MEDS: HYDROcodone-ACET 5/325MG TAB PO PRN (23:38)
[2024-07-27 00:39] VITALS: PULSE 70; RESP 18; O2SAT 97
[2024-07-27] MEDS: traMADol HCL 50 MG TAB PO ONE (01:23)
[2024-07-27] MEDS: CEFEPIME 1GM/ 50ML 50 ML IV ONE (01:30)
--- NOTE | 2024-07-27 04:20 | DVHHP2 ---
History of Present Illness Reason for Visit: Skin burn History of Present Illness 63-year-old male presents for evaluation of a skin burn. Patient reports developing a skin burn two days ago while cooking. Patient reports some grease falling on his abdomen causing a burn. He states that today he developed some redness around the site. Patient had an abdominal wall skin graft on the area of the burn on 2013 therefore does not have sensation. No other acute complaints reported. Past Medical History Hypertension, diabetes mellitus, dyslipidemia Past Surgical History Hernia repair, cholecystectomy, appendectomy, skin graft to abdomen Family History Noncontributory Smoke: No ALCOHOL: none Drugs: None Lives: with Family Review of Systems Review of Systems Review of systems are currently negative otherwise addressed in HPI. Allergies: Coded Allergies: NO KNOWN ALLERGIES (Unverified , 11/14/23) Medications Current Medications Medications Dose Ordered Sig/Cristian Route Start Time Stop Time Status Last Admin Dose Admin Clindamycin Phosphate 50 ml @ 50 mls/hr Q8HR IV 07/26/24 22:00 07/26/24 21:56 50 MLS/HR Mupirocin 1 applic BID TOP 07/26/24 22:00 Metoprolol Tartrate 12.5 mg BID PO 07/26/24 22:00 Tamsulosin HCl 0.4 mg QPM PO 07/27/24 18:00 Furosemide 40 mg DAILY PO 07/27/24 10:00 Pantoprazole Sodium 40 mg DAILY@0600 PO 07/27/24 06:00 Diagnostic Test (Pha) 1 strip ACHS 07/26/24 22:00 07/26/24 21:57 1 STRIP Insulin Human Regular ACHS SC 07/26/24 22:00 07/26/24 21:57 4 UNITS Dextrose 50 ml UD PRN IV 07/26/24 21:00 Acetaminophen/ Hydrocodone Bitart 1 tab Q4HP PRN PO 07/26/24 21:00 07/26/24 23:38 1 TAB Ondansetron HCl 4 mg Q4HP PRN IV 07/26/24 21:00 Acetaminophen 650 mg Q6HP PRN PO 07/26/24 21:00 Exam Vital Signs Vital Signs Date Time Temp Pulse Resp B/P (MAP) Pulse Ox O2 Delivery O2 Flow Rate FiO2 07/27/24 00:39 70 18 97 Room Air* 0 21 07/26/24 22:08 98.1 124/73 (90) 98.1 Exam Gen: 63-year-old male in no apparent distress Skin: Warm, dry, normal color and texture, lower abdominal wall second-degree burn with mild erythema surrounding HEENT: Normocephalic atraumatic, mucous membranes moist and pink. Neck: Cervical and supraclavicular nodes normal without enlargement, trachea is midline, thyroid gland is normal without masses. Pulmonary: Clear to auscultation and percussion bilaterally. Cardiac: Regular rate and rhythm. No murmur Abdomen: Soft, nontender, nondistended, bowel sounds present all 4 quadrants, no guarding, no rigidity, no organomegaly. Extremities: No cyanosis, clubbing, no edema Neuro: Cranial nerves II through XII grossly intact, normal affect and speech, no focal motor deficits. Labs/Xrays Labs Test 07/26/24 21:51 07/26/24 18:46 Range/Units POC Glucose 236 H 70-106 mg/dl White Blood Count 8.3 4.4-10.8 10^3/uL Red Blood Count 5.19 4.5-5.90 10^6/uL Hemoglobin 13.7 13.5-17.5 g/dL Hematocrit 42.1 41.0-53.0 % Mean Corpuscular Volume 81.1 80.0-100.0 fL Mean Corpuscular Hemoglobin 26.5 L 28.0-32.0 pg Mean Corpuscular Hemoglobin Concent 32.6 32.0-36.0 g/dL Red Cell Distribution Width 24.2 H 11.8-14.3 % Platelet Count 189 140-450 10^3/uL Mean Platelet Volume 8.7 6.9-10.8 fL Neutrophils (%) (Auto) 80.6 H 37.0-80.0 % Lymphocytes (%) (Auto) 9.0 L 10.0-50.0 % Monocytes (%) (Auto) 9.0 0.0-12.0 % Eosinophils (%) (Auto) 0.9 0.0-7.0 % Basophils (%) (Auto) 0.5 0.0-2.0 % Neutrophils # (Auto) 6.7 1.6-8.6 10 ^3/uL Lymphocytes # (Auto) 0.7 0.4-5.4 10 ^3/uL Monocytes # (Auto) 0.8 0-1.3 10 ^3/uL Eosinophils # (Auto) 0.1 0-0.8 10 ^3/uL Basophils # (Auto) 0 0-0.2 10 ^3/uL Nucleated Red Blood Cells 0.0 % Sodium Level 140 136-145 mmol/L Potassium Level 3.7 3.5-5.1 mmol/L Chloride Level 104 98-107 mmol/L Carbon Dioxide Level 27 20-31 mmol/L Anion Gap 9 5-15 Blood Urea Nitrogen 14 9-23 mg/dL Creatinine 0.80 0.700-1.30 mg/dL Glomerular Filtration Rate Calc 99 >90 mL/min BUN/Creatinine Ratio 17.5 10.0-20.0 Serum Glucose 112 H 74-106 mg/dL Calcium Level 9.6 8.7-10.4 mg/dL Assessment/Plan Assessment/Plan Assessment Septic can degree burn of abdominal wall Cellulitis Diabetes mellitus Hypertension Plan Admit the patient to Med surge to the hospitalist Clindamycin Resume home medications Wound consult Continue treatment per orders. Plan discussed with: Patient My Orders Orders - DERIC SOLANOMatt Procedure Category Date Status Time * Wound Consult CONS 07/26/24 Transmitted Clindamycin 600mg Iv PHA 07/26/24 In Process (Cleocin Iv) 22:00 Mupirocin 2% Ointment PHA 07/26/24 In Process (Bactroban 2% Oint 22:00 Metoprolol Tartrate PHA 07/26/24 In Process Tablet (Lopressor Ta 22:00 Furosemide Tablet PHA 07/27/24 In Process (Lasix Tablet) 10:00 Pantoprazole Tablet PHA 07/27/24 In Process (Protonix Tablet) 06:00 Glucose Blood PHA 07/26/24 In Process (Accu-Chek Comfort 22:00 Insulin R (Human) PHA 07/26/24 In Process (Insulin R) 22:00 Dextrose 50% Syringe PHA 07/26/24 In Process 21:00 Admit ADMIT 07/26/24 Transmitted 20:53 Hydrocodone-Acet PHA 07/26/24 In Process 5/325mg Tab ([place] 21:00 Ondansetron Hcl PHA 07/26/24 In Process (Zofran) 21:00 Cardiac DIET 07/27/24 Transmitted Diet-2gna,Lofat,Lochol Breakfast Condition: Stable TED 5/4/25 In Process 20:53 Acetaminophen Tablet PHA 07/26/24 In Process (Tylenol Tablet) 21:00 Bedrest With Bathroom TED 07/26/24 In Process Privileg 20:53 Tamsulosin PHA 07/27/24 In Process Hydrochloride (Flomax) 18:00 Date of Service: July 26, 2024 Billing Provider: DERIC SOLANO Common Visit Codes: [id number] INP/OBS CARE (HIGH) DERIC SOLANO July 27, 2024 04:20
[2024-07-27 05:00] VITALS: BP 108/52; PULSE 66; RESP 18; TEMP 97.6; O2SAT 94
[2024-07-27] MEDS: PANTOPRAZOLE 40 MG TAB PO SCH (06:13)
[2024-07-27 09:00] VITALS: BP 117/67; PULSE 70; RESP 16; TEMP 98.6; O2SAT 96
[2024-07-27] MEDS: FUROSEMIDE 40 MG TAB PO SCH (09:20)
[2024-07-27 13:00] VITALS: BP 120/70; PULSE 77; RESP 18; TEMP 98.6; O2SAT 96
--- NOTE | 2024-07-27 16:35 | DVHPN2 ---
Subjective He was admitted for a burn of his abdominal wall on the piece of skin that is graft for a prior surgery which he does not have any feeling in it and therefore he did not realize the burn until next day Changes from previous H/P or p: Changes Objective Vitals Vital Signs Date Time Temp Pulse Resp B/P (MAP) Pulse Ox O2 Delivery O2 Flow Rate FiO2 07/27/24 13:00 98.6 77 18 120/70 (87) 96 98.6 07/27/24 08:00 Room Air* 0 21 Intake/Output Intake and Output 07/27/24 07:00 Intake Total 0 ml Balance 0 ml Intake Oral 0 ml Medications Current Medications Medications Dose Ordered Sig/Cristian Route Start Time Stop Time Status Last Admin Dose Admin Clindamycin Phosphate 50 ml @ 50 mls/hr Q8HR IV 07/26/24 22:00 07/27/24 14:28 50 MLS/HR Mupirocin 1 applic BID TOP 07/26/24 22:00 07/27/24 14:28 1 APPLIC Metoprolol Tartrate 12.5 mg BID PO 07/26/24 22:00 07/27/24 09:20 12.5 MG Tamsulosin HCl 0.4 mg QPM PO 07/27/24 18:00 Furosemide 40 mg DAILY PO 07/27/24 10:00 07/27/24 09:20 40 MG Pantoprazole Sodium 40 mg DAILY@0600 PO 07/27/24 06:00 07/27/24 06:13 40 MG Diagnostic Test (Pha) 1 strip ACHS 07/26/24 22:00 07/27/24 11:30 1 STRIP Insulin Human Regular ACHS SC 07/26/24 22:00 07/26/24 21:57 4 UNITS Dextrose 50 ml UD PRN IV 07/26/24 21:00 Acetaminophen/ Hydrocodone Bitart 1 tab Q4HP PRN PO 07/26/24 21:00 07/27/24 08:23 1 TAB Ondansetron HCl 4 mg Q4HP PRN IV 07/26/24 21:00 Acetaminophen 650 mg Q6HP PRN PO 07/26/24 21:00 Laboratory Results Laboratory Tests 07/26/24 18:46 Chemistry Test 07/26/24 18:46 Calcium Level 9.6 mg/dL (8.7-10.4) Microbiology Microbiology Date/Time Source Procedure Growth Status 07/26/24 18:18 Abdomen Gram Stain - Final Resulted 07/26/24 18:18 Abdomen Wound Culture - Preliminary Resulted Assessment/Plan Assessment/Plan Second-degree skin burn Atrial fibrillation BPH Morbid obesity Hypertension Type 2 diabetes Mixed hyperlipidemia Chronic low back pain Chronic heart failure Plan IV antibiotics broad-spectrum Wound care Resume the home medications Full code Advance directives discussed for 17 minutes Plan discussed with: Patient My Orders Orders - LORI WICK MD Procedure Category Date Status Time Wound Culture W/ Gs CHERYL 07/27/24 In Process 13:11 Date of Service: July 27, 2024 Billing Provider: LORI WICK MD Common Visit Codes: [id number] INP/OBS CARE(HIGH) Secondary Visit Codes: [id number] CARE PLAN 30 MINUTES LORI WICK MD July 27, 2024 16:35
[2024-07-27 17:00] VITALS: BP 119/78; PULSE 66; RESP 20; TEMP 98.6; O2SAT 96
[2024-07-27] MEDS: TAMSULOSIN HYDROCHLORIDE 0.4 MG CAP PO SCH (17:32)
[2024-07-27 21:00] VITALS: BP 117/59; PULSE 68; RESP 20; TEMP 98.3; O2SAT 94
[2024-07-27] MEDS: APIXABAN 5 MG TAB PO SCH (21:10)
[2024-07-27] MEDS: CARISOPRODOL 350 MG TAB PO PRN (21:33)
[2024-07-27] MEDS: traMADol HCL 50 MG TAB PO PRN (21:34)
[2024-07-28 01:00] VITALS: BP 111/54; PULSE 70; RESP 20; TEMP 97.8; O2SAT 100
[2024-07-28 05:00] VITALS: BP 127/73; PULSE 59; RESP 20; TEMP 97.7; O2SAT 97
[2024-07-28 08:00] VITALS: RESP 18
[2024-07-28 09:00] VITALS: BP 116/75; PULSE 60; RESP 18; TEMP 97.8; O2SAT 95
[2024-07-28] MEDS: SERTRALINE HCL 50 MG TAB PO SCH (09:43)
[2024-07-28] MEDS ORDERED: CEPH500C PO (12:19)
--- NOTE | 2024-07-28 12:20 | DVHDS2 ---
Discharge Summary Date of Admission July 26, 2024 at 20:53 Date of Discharge: July 28, 2024 Labs/Diagnostic Data: Laboratory Results Test 07/28/24 11:11 07/26/24 18:46 POC Glucose 154 mg/dl (70-106) White Blood Count 8.3 10^3/uL (4.4-10.8) Red Blood Count 5.19 10^6/uL (4.5-5.90) Hemoglobin 13.7 g/dL (13.5-17.5) Hematocrit 42.1 % (41.0-53.0) Mean Corpuscular Volume 81.1 fL (80.0-100.0) Mean Corpuscular Hemoglobin 26.5 pg (28.0-32.0) Mean Corpuscular Hemoglobin Concent 32.6 g/dL (32.0-36.0) Red Cell Distribution Width 24.2 % (11.8-14.3) Platelet Count 189 10^3/uL (140-450) Mean Platelet Volume 8.7 fL (6.9-10.8) Neutrophils (%) (Auto) 80.6 % (37.0-80.0) Lymphocytes (%) (Auto) 9.0 % (10.0-50.0) Monocytes (%) (Auto) 9.0 % (0.0-12.0) Eosinophils (%) (Auto) 0.9 % (0.0-7.0) Basophils (%) (Auto) 0.5 % (0.0-2.0) Neutrophils # (Auto) 6.7 10 ^3/uL (1.6-8.6) Lymphocytes # (Auto) 0.7 10 ^3/uL (0.4-5.4) Monocytes # (Auto) 0.8 10 ^3/uL (0-1.3) Eosinophils # (Auto) 0.1 10 ^3/uL (0-0.8) Basophils # (Auto) 0 10 ^3/uL (0-0.2) Nucleated Red Blood Cells 0.0 % Sodium Level 140 mmol/L (136-145) Potassium Level 3.7 mmol/L (3.5-5.1) Chloride Level 104 mmol/L (98-107) Carbon Dioxide Level 27 mmol/L (20-31) Anion Gap 9 (5-15) Blood Urea Nitrogen 14 mg/dL (9-23) Creatinine 0.80 mg/dL (0.700-1.30) Glomerular Filtration Rate Calc 99 mL/min (>90) BUN/Creatinine Ratio 17.5 (10.0-20.0) Serum Glucose 112 mg/dL (74-106) Calcium Level 9.6 mg/dL (8.7-10.4) Other Laboratory Tests 07/26/24 18:46 Brief Hx & Hospital Course: Final diagnoses: Second-degree skin burn with cellulitis of the abdominal wall Atrial fibrillation BPH Morbid obesity Hypertension Type 2 diabetes Mixed hyperlipidemia Chronic low back pain Chronic heart failure 63-year-old male developed a burn after he spilled something hot on his abdominal wall where he has a graft which he does not have a sensation in and therefore he did not discover the wound until the next day He was admitted and given IV antibiotics and wound care He is doing well now and therefore he will be discharged home He will be given cephalexin for 10 days Change the dressing daily Follow up with the primary care physician as soon as possible Resume the home medications Condition at Discharge: Stable Final Diagnosis/Problems List Second-degree skin burn Atrial fibrillation BPH Morbid obesity Hypertension Type 2 diabetes Mixed hyperlipidemia Chronic low back pain Chronic heart failure Discharge Disposition: Home SNF Discharge Will this Physician continue t: No Discharge Statement: "Patient was advised to return to the ER or call 911 if any headaches, dizziness, shortness of breath, chest pain, abdominal pain, bleeding, fevers, or worsening of medical condition. Patient was counseled about treatment plan, medications, possible side effects, patientverbalized understanding. All questions were answered to the best of my ability. This discharge took greater then 30 minutes in planning, reviewing documentation, counseling the patient, and discussing with other team members." ASSESSMENT ASSESSMENT Assessment Date of Service: July 28, 2024 Billing Provider: LORI WICK MD Common Visit Codes: [id number]-ALF/OBS DISCH DAY >30min LORI WICK MD July 28, 2024 12:20
[2024-07-28 12:26] VITALS: BP 116/75; PULSE 60; RESP 19; TEMP 36.6; O2SAT 95
[2024-07-28 12:34] VITALS: BP 116/74; PULSE 58; RESP 18; TEMP 97.8; O2SAT 96
== END 2024-07-28 15:40 | disposition home or self-care (01) | DRG 844 ==
LOC: ER 16:18 → OVERFLOW 20:53 → WEST WING 21:05
PROVIDERS: ADMIT Internal Medicine Geriatric Medicine; ATTEND Internal Medicine Geriatric Medicine
DX: T21.22XA Burn of second degree of abdominal wall, initial encounter (principal); I11.0 Hypertensive heart disease with heart failure; I50.9 Heart failure, unspecified; L03.311 Cellulitis of abdominal wall; E11.9 Type 2 diabetes mellitus without complications; I48.91 Unspecified atrial fibrillation; Z68.35 Body mass index [BMI] 35.0-35.9, adult; E66.01 Morbid (severe) obesity due to excess calories; N40.0 Benign prostatic hyperplasia without lower urinary tract symptoms; M54.9 Dorsalgia, unspecified; E78.2 Mixed hyperlipidemia; G89.29 Other chronic pain; X08.8XXA Exposure to other specified smoke, fire and flames, initial encounter; Y93.89 Activity, other specified; Y92.89 Other specified places as the place of occurrence of the external cause; Y99.8 Other external cause status; Z86.718 Personal history of other venous thrombosis and embolism; Z79.899 Other long term (current) drug therapy
CPT/HCPCS: 16020; 36415; 80048; 82962; 85025; 87040; 87077; 87186; 87205; 96365; G0378; J1815; J3490

== ENCOUNTER → 2024-09-22 | Outpatient (CLI) | payer MEDICAID ==
[~2024-09-22] MED LIST changes: +CEPH500C PO; -FERR325T24 PO; -FURO1TAB31 PO; -METO25TA5 PO; -METO25TA93 PO; -PANT40TA2 PO; -SPIR25TA PO; -TRAM50TA2 PO
[2024-09-22 08:43] LABS: Hematocrit 40.1 % (41.0-53.0); Hemoglobin 13.3 g/dL (13.5-17.5); Mean Corpuscular Hemoglobin 28.6 pg (28.0-32.0); Mean Corpuscular Volume 86.4 fL (80.0-100.0); Nucleated Red Blood Cells % 0.0 %
[2024-09-22 08:52] LABS: Urine Protein, UAD Negative (Negative)
[2024-09-22 09:03] LABS: Alanine Aminotransferase 16 U/L (7-40); Albumin 4.2 g/dL (3.2-4.8); Alkaline Phosphatase 62 U/L (46-116); Anion Gap 7 (5-15); BUN/Creatinine Ratio 18.1 (10.0-20.0); Blood Urea Nitrogen 15 mg/dL (9-23); Calcium 9.3 mg/dL (8.7-10.4); Carbon Dioxide 25 mmol/L (20-31); Potassium 4.1 mmol/L (3.5-5.1); Sodium 142 mmol/L (136-145); Total Protein 6.4 g/dL (5.7-8.2)
[2024-09-22 09:04] LABS: Bilirubin, Total 0.3 mg/dL (0.2-1.0); Chloride 110 mmol/L (98-107); Cholesterol 166 mg/dL (< 200); Glucose 126 mg/dL (74-106); HDL Cholesterol 43 mg/dL (40-59); Triglycerides 156 mg/dL (< 150)
[2024-09-22 09:15] LABS: Cannabinoid Screen, Urine Pos (NEGATIVE)
[2024-09-22 09:19] LABS: Amphetamine Screen, Urine Neg (NEGATIVE); Barbiturate Scree,Urine Neg (NEGATIVE); Benzodiazephine Screen, Urine Neg (NEGATIVE); Cocaine Screen, Urine Neg (NEGATIVE); Opiate Scree,Urine Neg (NEGATIVE); Phencyclidine Screen, Urine Neg (NEGATIVE)
[2024-09-23 08:07] LABS: RPR Non Reactive (Non Reactive)
[2024-09-24 04:06] LABS: Chlamydia Trachomatis, NAA Negative (Negative); Neisseria gonorrhoeae, NAA Negative (Negative)
== END | disposition home or self-care (01) ==
LOC: LAB 07:55
PROVIDERS: ATTEND Nurse Practitioner
DX: I10 Essential (primary) hypertension (principal); E11.9 Type 2 diabetes mellitus without complications; E78.5 Hyperlipidemia, unspecified
CPT/HCPCS: 36415; 80053; 80061; 80307; 81001; 83036; 84153; 84443; 85025; 86592; 86703; 86735; 86762; 86765; 86787; 87340